=== PATIENT | male | born 1990 ===

== ENCOUNTER 2025-01-23 14:04 | Emergency (ER) | payer OTHER, SELFPAY ==
--- NOTE | ~2025-01-23 | XR_ITS ---
EXAMINATION: XR HAND 3 OR MORE VIEWS LEFT HISTORY: crush injury COMPARISON: There are no prior studies available for comparison. FINDINGS: Three views of the left hand are submitted. Osseous mineralization is normal. There is no fracture or dislocation. The joint spaces are preserved. The soft tissues are unremarkable. XR/XR hand LT min 3V IMPRESSION: Unremarkable examination of the left hand. Electronically signed by: Obdulio Mosley MD 01/23/2025 02:32 PM EDT
[2025-01-23 14:16] VITALS: BP 142/77; PULSE 84; RESP 18; TEMP 37; O2SAT 100; BMI 23.6
--- NOTE | 2025-01-23 14:20 | ED.UPPEXIN ---
HPI - Extremity Injury (Upper) General Chief Complaint: Wound/Laceration Stated Complaint: finger lac Time Seen by Provider: 01/23/25 17:53 Source: patient, RN notes reviewed, old records reviewed and product steward Mode of arrival: ambulatory Limitations: language barrier History of Present Illness ED Provider: Davie HPI narrative: 34-year-old male presents for evaluation of a hand injury. Patient reports he was at work and a window closed on his left hand pain He sustained lacerations to his 2nd and 3rd fingers pain He does not know when his last tetanus shot was. No other complaints or concerns at this time Related Data Allergies Allergy/AdvReac Type Severity Reaction Status Date / Time No Known Allergies Allergy Verified 01/23/25 14:17 Review of Systems Constitutional: Constitutional: Denies body ache(s), Denies chills and Denies headache(s) ENT: Denies headache(s) Musculoskeletal: Musculoskeletal: Reports arthralgias, Reports joint swelling and Reports limited range of motion Integumentary/Breasts: Skin/Breast: Reports wounds Neurologic: Denies headache(s) [facility] Social History Social History Unable to assess alcohol history related to: Unknown Use of substances other than those prescribed or required for medical reasons: Unknown Advance Directives: No Advance Directives Information Provided: No Physical Exam Vital Signs: Vital Signs: Last Vital Signs Temp 98.6 F 01/23/25 14:16 Pulse 84 01/23/25 14:16 Resp 18 01/23/25 14:16 BP 142/77 H 01/23/25 14:16 Pulse Ox 100 01/23/25 14:16 O2 Del Method Room Air 01/23/25 14:16 BMI result Body Mass Index 23.6 Const: General: healthy appearing, comfortable, no acute distress, alert and awake Nutritional Appearance: well nourished Orientation/consciousness: patient oriented x3 HEENT: Head: Yes normocephalic and Yes atraumatic Eyes: Eyelids: Yes eyelids normal Conjunctivae: conjunctivae normal Sclerae: sclerae normal Corneas: corneas normal Pupils: Equal, round and reactive pupils present EOM: EOMs intact bilaterally Neck: Neck: Yes full ROM Resp: Effort & Inspection: normal respiratory effort, able to speak in complete sentences and not labored Skin: Other: There is a 5 cm curvilinear laceration to the dorsal finger side extending proximally. Bleeding is controlled. There is a smaller, 3 cm curvilinear laceration to the index finger of the dorsal surface. The patient is able to extend both fingers completely General skin exam: elasticity normal Neuro: General: patient oriented x3 Cranial nerves: Yes Equal, round and reactive pupils present and Yes Bilaterally intact EOM present Cognition (Neuro): normal cognition Course Course Course Narrative: This is an RME: Additional HPI, ROS, PE not included below will be deferred to primary provider. RME assessment and note performed by: Lara Magaña PA-C This is a 34-year-old male who presents emergency department with concerns of finger laceration after his hand being crushed in a window. Laceration noted to 3rd and 4th digits, with tenderness palpation, laceration noted. Unsure about tetanus status. Plan: X-rays, wound repair Medications Administered Discontinued Medications Generic Name Dose Route Start Last Admin Trade Name Freq PRN Reason Stop Dose Admin Diphtheria/Tetanus/Acell Pertussis 0.5 ml 01/23/25 18:12 01/23/25 18:20 Diphth,Pertus(Acell),Tet Adult 0.5 Ml Syringe IM 01/23/25 18:13 0.5 ml .ONCE ONE Administration Lidocaine HCl 10 ml 01/23/25 18:12 01/23/25 18:19 Lidocaine Hcl 1 % 20 Ml Vial INFILTRATI 01/23/25 18:13 10 ml ONCE ONE Administration Oxycodone HCl 5 mg 01/23/25 18:36 01/23/25 18:42 Oxycodone Hcl Immed Release 5 Mg Tablet PO 01/23/25 18:37 5 mg ONCE ONE Administration Medical Decision Making Medical Decision Making [facility] Narrative: 34-year-old male presents for evaluation of 2 finger laceration crush injury. X-rays negative for fracture. He is able to extend both fingers, I have a low suspicion for extensor tendon laceration. See procedure note for wound repair. The patient consented to sutures of the 3rd finger which was a slightly larger wound. He refused sutures of the 2nd finger and preferred glue. 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 I think the wound is slightly too large to recommend skin glue but it was well approximated. The patient is still requested Dermabond skin glue for the index finger laceration Differential Diagnosis Differential Diagnoses: The differential diagnosis associated with the presentation includes Laceration Skin tear Extensor tendon laceration Finger fracture Open prior Independent Interpretation I performed an independent interpretation of an: Plain X-Ray Interpretation: Agree with Radiology interpretation Radiology Impression Discussion of test interpretation with radiology: I have reviewed the radiologist's reading. Radiologist Impression: FINDINGS: Three views of the left hand are submitted. Osseous mineralization is normal. There is no fracture or dislocation. The joint spaces are preserved. The soft tissues are unremarkable. XR/XR hand LT min 3V IMPRESSION: Unremarkable examination of the left hand. Electronically signed by: Obdulio Mosley MD 01/23/2025 02:32 PM EDT RP Procedures Laceration 3rd finger: Site: hand Side (If applicable): left Size (cm): 5 Description: linear, flap and irregular Depth: simple, single layer Local Anesthetic: lidocaine 1% Amount of anesthesia used (mL): 2 Pre-repair: wound explored, irrigated extensively and deep structures intact Skin layer closed with: nylon and skin adhesive (There was a very tiny skin flap that was tacked down with skin glue) Size (cm): 4-0 Number of sutures: 8 Technique: simple, interrupted 2nd finger: Site: hand Side (If applicable): left Size (cm): 3 Description: linear (Curvilinear) Depth: simple, single layer Amount of anesthesia used (mL): 0 Pre-repair: wound explored, irrigated extensively and deep structures intact Skin layer closed with: skin adhesive Discharge Plan Discharge Clinical Impression: Laceration Patient Disposition: Home, Self-Care Instructions: Finger Laceration (ED) Additional Instructions: You had 2 lacerations to your left hand pain One on the 3rd finger that has 8 sutures. You had glue closing the 1 on the index finger This will dissolve on its own. Keep the area clean and dry. Return in 10-14 days for suture removal Follow up with your primary doctor Your x-ray did not show any evidence of fracture Stand Alone Forms: Work/School Release Print Language: Italian
[2025-01-23] MEDS: Lidocaine HCl 1 % 20 ML VIAL 10 ML INFILTRATI (18:19)
[2025-01-23] MEDS: Diphth,Pertus(ACell),Tet Adult 0.5 ML SYRINGE IM (18:20)
[2025-01-23] MEDS: oxyCODONE HCl Immed Release 5 MG TABLET PO (18:42)
[2025-01-23 20:03] VITALS: BP 142/77; PULSE 84; RESP 18; TEMP 37; O2SAT 100
== END 2025-01-23 20:03 | disposition home or self-care (01) ==
PROVIDERS: Emergency Provider Emergency Medicine
DX: S61.213A Laceration without foreign body of left middle finger without damage to nail, initial encounter (principal); S61.211A Laceration without foreign body of left index finger without damage to nail, initial encounter; M79.642 Pain in left hand; W45.8XXA Other foreign body or object entering through skin, initial encounter; Y93.9 Activity, unspecified; Y92.9 Unspecified place or not applicable; Y99.0 Civilian activity done for income or pay; Z23 Encounter for immunization
CPT/HCPCS: 12002; 13132; 73130; 90471; 90715; 99284; J2003

== ENCOUNTER → 2025-01-23 14:19 | Outpatient (BNV) | payer SELFPAY | PROVIDERS: Visit Provider Radiology Diagnostic Radiology | DX: M79.642 Pain in left hand (principal) | CPT/HCPCS: 73130 ==